=== PATIENT | female | born 1945 | race Caucasian/White ===

== ENCOUNTER 2017-06-21 16:01 | Inpatient (IN) | payer MEDICARE, OTHER ==
[2017-06-21 16:43] LABS: #Monocytes 0.5 thou/uL (0.11-0.59); #Neutrophils 2.6 thou/uL (1.40-6.50); %Basophils 0.5 % (0.0-1.0); %Eosinophils 0.2 % (0.0-10.0); %Lymphocytes 23.3 % (21.0-51.0); %Monocytes 12.9 % (0.0-10.0); %Neutrophils 63.1 % (42.0-75.0); Hemoglobin 8.6 g/dL (12.0-16.0); Mean Corpuscular HGB CONC 30.6 g/dL (32.0-36.0); Mean Corpuscular Hemoglobin 24.3 pg (27.0-31.0); Mean Corpuscular Volume 79.6 fl (81.0-99.0); Mean Platelet Volume 7.3 fL (7.4-10.4); Platelet Count 249 thou/uL (130-400); RBC Distribution Width 14.9 % (11.5-14.5); Red Blood Cell (RBC) Count 3.51 mill/uL (4.20-5.40); White Blood Cell (WBC) Count 4.1 thou/uL (4.8-10.8)
[2017-06-21 17:02] LABS: ALT (SGPT) 14 U/L (8-55); AST (SGOT) 19 U/L (5-34); Albumin 4.1 g/dL (3.4-4.8); Alkaline Phosphatase 82 U/L (40-150); Anion Gap 13 mmol/L (10-20); BUN (Urea Nitrogen) 20 mg/dL (9.8-20.1); Bilirubin, Total 0.6 mg/dL (0.2-1.2); Calc. Creatinine Clearance 0 mL/min (70-130); Calcium 8.8 mg/dL (7.8-10.44); Carbon Dioxide 23 mmol/L (23-31); Chloride 105 mmol/L (98-107); Estimated GFR-MDRD 38; Globulin 2.3 g/dL (2.4-3.5); Glucose 143 mg/dL (83-110); Potassium 5.4 mmol/L (3.5-5.1); Protein, Total 6.4 g/dL (6.0-8.3); Sodium 136 mmol/L (136-145)
[2017-06-21] MEDS ORDERED: GoLYTELY 4,000 ml Bottle PO SCH (19:30)
[2017-06-21] MEDS ORDERED: Ondansetron HCl/PF 4 MG/2 ML Vial IVP PRN (19:49)
[2017-06-21] MEDS: Sodium Chloride 0.9% 1,000 ML IV SCH (20:57)
[2017-06-21] MEDS: Pantoprazole 40 MG VIAL IVP SCH (20:57)
--- NOTE | 2017-06-21 21:56 | CON ---
DATE OF CONSULTATION: 06/21/2017 REASON FOR CONSULTATION: Iron deficiency anemia. CONSULTING PHYSICIAN: Dr. Az hall. HISTORY OF PRESENT ILLNESS: The patient is a 71-year-old female with past medical history of diabete s, hypertension, and atrial fibrillation on anticoagulation, presenting with complaints of anemia. S he states that she has been having progressively worsening fatigue over the last 3-4 months (although she cannot quantify exactly when) characterized as increased dyspnea on exertion, especially with lo nger distances with worsening of the fatigue prompted her to seek healthcare assistance with her PCP drawing routine labs earlier today, which noted a significant anemia when compared to her baseline H&H of 12 and 36. She was ultimately seen in the ER with plans to transfer to the floor. Upon question ing, she denies any overt GI bleeding, although she did state that she will have occasional episodes of bright red blood per rectum with blood present only on the toilet paper, not in the toilet. This occurs approximately once every 1-2 months with around quarter teaspoon of blood present on the toile t paper itself. Otherwise, she denies any overt GI bleeding including hematochezia or melena. She h as approximately 1-3 solid bowel movements per day with occasional straining in order to defecate. O therwise, she denies any nausea, vomiting, fevers, chills, abdominal pain, GI bleeding, odynophagia, dysphagia, or weight loss. Of note, she states that she has never had a colonoscopy. However, she underwent an EGD on 3 with the findings of a large 3 cm ulcerated polyp in the fundus of the stomach that was removed wit h snare cautery polypectomy. An additional 1 cm polyp was seen in the body of the stomach. There wa s also removed with snare cautery polypectomy. An additional 6 mm polyp was left alone in the body o f the stomach. The pathology results showed the presence of hyperplastic polyps for both of the poly ps were removed with the larger polyp showing focal adenomatoid changes involving only in the surface of the polyp with the margins negative for adenomatoid change. No Helicobacter pylori was identifie d on any of the biopsy results. REVIEW OF SYSTEMS: A 10-point category review of systems was obtained with all responses negative ex cept for the pertinent positives as listed in the HPI. PAST MEDICAL HISTORY: As per HPI. PAST SURGICAL HISTORY: Right knee surgery, left ankle surgery, CABG with 3-vessel graft, pacemaker p lacement, cardiac ablation x3, and hysterectomy. FAMILY HISTORY: CVA (mother), coronary artery disease/DC (uncle). SOCIAL HISTORY: Denies any tobacco, alcohol, or illicit drug use. OUTPATIENT MEDICATIONS: Metoprolol, Multaq, metformin, and Xarelto. ALLERGIES: No known drug allergies. PHYSICAL EXAMINATION: VITAL SIGNS: Pulse 87, blood pressure 173/85, respiratory rate 16, and satting 99% on room air. GENERAL: Patient is lying in bed in no acute distress, alert and oriented x4. NECK: Supple. No JVD noted. CARDIOVASCULAR: Regular rate and rhythm with no discernible murmurs, gallops, or rubs. RESPIRATORY: Clear to auscultation bilaterally with no discernible wheezes or rales. ABDOMEN: Normoactive bowel sounds, soft, nontender, nondistended. No hepatosplenomegaly noted. EXTREMITIES: No cyanosis, clubbing, or edema. LABORATORY DATA: CBC with a white blood cell count of 4.1, hemoglobin 8.6, hematocrit 28, platelets 249. Chemistry with a sodium of 136, potassium 5.4, chloride 105, CO2 of 23, BUN 20, creatinine 1.36 , glucose 143, AST 19, ALT 14, alkaline phosphatase 82, total bilirubin 0.6, MCV 79, RDW 14.9. IMAGING DATA: No current GI imaging is available for review. ASSESSMENT AND PLAN: The patient is a 71-year-old female with past medical history of diabetes, atri al fibrillation on anticoagulation, presenting with symptomatic anemia. Symptomatic anemia. The patient is presenting with progressive worsening of fatigue, especially with increased physical exertion over the last 3-4 months. When routine labs were obtained earlier today , her H&H was noted to be significantly decreased when compared to her baseline in February of last y ear, dropping approximately 3 or 4 units of blood during that particular time. However, upon questio bri the patient, she denies any overt GI bleeding during that time period as well with only intermit tent complaints of bright red blood per rectum of minimal amounts. At this time, it does not appear that the bright red blood per rectum would be enough to contribute to her current anemia, but rather there could be another obvious another source of occult GI bleeding. Given the EGD that was performe d in 10/2012. She may have a recurrence of the ulcerated polyps within the stomach that could contri bute to the iron deficiency anemia seen on labs today. Differential could include esophagitis (less likely) gastritis, ulcerated polyps, peptic ulcer disease, AVM/Dieulafoy lesions, and/or possible mal ignancy (much less likely). RECOMMENDATIONS: 1. We would continue to trend H&H and transfuse as necessary to maintain an H&H of 10/23. 2. Continue to monitor for signs of clinical overt gastrointestinal bleeding. 3. We would place the patient on pantoprazole 40 mg b.i.d. given possible upper gastrointestinal ble eding source with ulcerated polyps in the past. 4. We will plan for both EGD and colonoscopy tomorrow for evaluation of iron deficiency anemia. The patient is to be n.p.o. at midnight with GoLYTELY prep administered tonight in preparation for those procedures. We will continue to follow. Please call with any questions.
[2017-06-21] MEDS ORDERED: Lisinopril 20 MG TAB PO SCH (22:15)
[2017-06-21] MEDS ORDERED: Dronedarone HCl 400 MG TAB PO SCH (22:15)
[2017-06-22 06:03] LABS: #Lymphocytes 1.1 thou/uL (1.20-3.40); #Monocytes 0.6 thou/uL (0.11-0.59); #Neutrophils 2.3 thou/uL (1.40-6.50); %Basophils 0.2 % (0.0-1.0); %Eosinophils 0.1 % (0.0-10.0); %Lymphocytes 27.9 % (21.0-51.0); %Monocytes 13.9 % (0.0-10.0); %Neutrophils 57.9 % (42.0-75.0); Hemoglobin 7.7 g/dL (12.0-16.0); Mean Corpuscular HGB CONC 31.4 g/dL (32.0-36.0); Mean Corpuscular Volume 76.6 fl (81.0-99.0); Mean Platelet Volume 7.4 fL (7.4-10.4); Platelet Count 219 thou/uL (130-400); RBC Distribution Width 14.7 % (11.5-14.5); Red Blood Cell (RBC) Count 3.18 mill/uL (4.20-5.40)
[2017-06-22 06:17] LABS: Anion Gap 10 mmol/L (10-20); BUN (Urea Nitrogen) 19 mg/dL (9.8-20.1); Calc. Creatinine Clearance 53 mL/min (70-130); Calcium 8.8 mg/dL (7.8-10.44); Carbon Dioxide 29 mmol/L (23-31); Estimated GFR-MDRD 51; Glucose 106 mg/dL (83-110); Potassium 4.4 mmol/L (3.5-5.1); Sodium 138 mmol/L (136-145)
[2017-06-22 06:31] LABS: Chloride 103 mmol/L (98-107)
[2017-06-22] MEDS: Lisinopril 20 MG TAB PO SCH ×2 (08:10→19:44)
[2017-06-22] MEDS: Pantoprazole 40 MG VIAL IVP SCH ×2 (08:11→19:45)
[2017-06-22] MEDS: Dronedarone HCl 400 MG TAB PO SCH ×2 (08:12→15:36)
[2017-06-22] MEDS ORDERED: Prevnar 13-Val Conj/PF 0.5 ML SYRINGE IM ONE (09:00)
--- NOTE | 2017-06-22 11:22 | OP ---
DATE OF PROCEDURE: 06/22/2017 SURGEON: Dr. Logan Rivera PROCEDURE: Esophagogastroduodenoscopy with snare polypectomy and biopsy and colonoscopy. PREOPERATIVE DIAGNOSIS: Iron deficiency anemia on chronic anticoagulation. Her last Xarelto was the night before last. PROCEDURE IN DETAIL: Informed consent was obtained from the patient. She was sedated with total int ravenous anesthesia. The bite block was placed and the endoscope was advanced easily to the second p ortion of the duodenum and retroflexion was performed in the stomach. The esophagus had scattered wh ite plaques in the distal two-thirds of the esophagus. These were only 7 mm in size for each plaque. Biopsies were obtained to rule out fungal esophagitis. The GE junction was normal. The stomach izaguirre d a large 2 cm pedunculated polyp in the body of the stomach along the lesser curvature. This was re moved by snare cautery polypectomy. There was immediate bleeding from the polypectomy site which was controlled with a single Hemoclip. The polyp was removed with a Nugent net. There were 4 other small sessile polyps in the fundus and body that were left alone. The pylorus and first and second portio ns of the duodenum were normal. The patient was turned around. A rectal exam was performed and was normal. The colonoscope was adva nced to the terminal ileum without difficulty. The mucosa of the terminal ileum was normal. The ile ocecal valve and appendiceal orifice were clearly identified. The preparation quality was fair with some solid vegetable matter in areas, but overall the views were adequate. The colonic mucosa was no rmal throughout. Retroflexed views in the rectum were unremarkable. IMPRESSION: 1. A 2 centimeter ulcerated polyp in the body of the stomach along the lesser curvature which was re moved by snare cautery polypectomy. This was the likely source of the anemia being on chronic antico agulation. There was immediate bleeding from the post-polypectomy site which was controlled with Hem oclip placement. 2. Four other small polyps were noted in the fundus and body of the stomach, which were left alone. These measured around 5-6 mm. 3. Scattered white plaques in the esophagus, biopsied to rule out fungal esophagitis. 4. Normal ileal colonoscopy with fair prep in areas, but overall adequate views. RECOMMENDATIONS: 1. Await histopathology. 2. Repeat EGD in 1 year. 3. Transfuse 1 unit red blood cells today given the symptomatic anemia. 4. Restart anticoagulation in 3 days. 5. Follow up in GI Clinic in 2 weeks. 6. Anticipate discharge home tomorrow if she responds appropriately to the transfusion and she has n o further overt bleeding.
[2017-06-22] MEDS: Sodium Chloride 0.9% 1,000 ML IV SCH (13:38)
[2017-06-22] MEDS ORDERED: PROPOFOL 200 MG/20 ML VIAL ONE (15:03)
[2017-06-22] MEDS ORDERED: Lidocaine 1% PF 5 ML VIAL ONE (15:03)
[2017-06-22] MEDS: hydrALAZINE 20 MG/ML VIAL SLOW IVP PRN (15:49)
--- NOTE | 2017-06-22 15:54 | PDOC.PN ---
- Subjective Encounter Start Date: 06/22/17 Encounter Start Time: 15:52 Ms. Sinclair was seen today in follow-up of blood loss anemia. She does not have any complaints. - Objective Resuscitation Status: Resuscitation Status FULL:Full Resuscitation MAR Reviewed: Yes Vital Signs & Weight: Vital Signs (12 hours) Temp Pulse Pulse Resp BP BP BP 06/22/17 15:30 97.8 F 63 16 188/81 H 06/22/17 14:51 97.6 F 65 20 06/22/17 13:30 97.6 F 66 16 162/66 H 06/22/17 13:15 97.9 F 63 17 150/70 H 06/22/17 11:21 97.6 F 67 16 06/22/17 08:10 186/79 H 06/22/17 08:00 98.4 F 63 16 06/22/17 07:36 98.4 F 63 16 BP Pulse Ox 06/22/17 15:30 92 L 06/22/17 14:51 198/84 H 93 L 06/22/17 13:30 95 06/22/17 13:15 06/22/17 11:21 143/62 H 98 06/22/17 08:10 06/22/17 08:00 06/22/17 07:36 186/79 H Weight Weight 157 lb 1.6 oz I&O: 06/21/17 06/22/17 06/23/17 06:59 06:59 06:59 Intake Total 4542 470 Balance 4542 470 Result Diagrams: 06/22/17 04:15 06/22/17 04:15 Phys Exam - Physical Examination HEENT: PERRLA Respiratory: no wheezing, no rales, no rhonchi, clear to auscultation bilateral Cardiovascular: RRR, no significant murmur, no rub Gastrointestinal: soft, non-tender, positive bowel sounds Musculoskeletal: no edema Dx/Plan (1) GI bleed Code(s): K92.2 - GASTROINTESTINAL HEMORRHAGE, UNSPECIFIED Status: Acute (2) Multiple gastric polyps Code(s): K31.7 - POLYP OF STOMACH AND DUODENUM Status: Acute (3) Permanent atrial fibrillation Code(s): I48.2 - CHRONIC ATRIAL FIBRILLATION Status: Acute (4) Hypertension Code(s): I10 - ESSENTIAL (PRIMARY) HYPERTENSION Status: Acute - Plan * GI bleed due to Gastric polyps- recommendations from Dr. Rivera noted. * Blood loss anemia- she will be transfused tonight, and will check the H&H in the AM * Home if she has an appropriate response. * AFIB- heart rate is stable. * HTN- blood pressure is elevated, but the patient says she has labile blood pressure at home- will continue her current medications, and treat with PRN hydralazine
[2017-06-22] MEDS: Amlodipine 5 MG TAB PO SCH (19:44)
--- NOTE | 2017-06-23 01:31 | HP ---
DATE OF ADMISSION: 06/21/2017 PRIMARY CARE PHYSICIAN: Dr. Mena. PRIMARY SPECIAL OFFICER AUTOMAT: Dr. Green. CHIEF COMPLAINT: Anemia. HISTORY OF PRESENT ILLNESS: Ms. Sinclair is a pleasant 71-year-old white female with history of fang ry artery disease, atrial fibrillation, diabetes, hyperlipidemia, hypertension, and chronic anticoagu lation with Xarelto. The patient is in normal state of health. She had labs drawn on 06/14/2017, in anticipation of followup appointment with Cardiology and primary care physician on the day of admiss ion. When she saw Dr. Green, he commented that everything was going very well and he is to contin ue on current medications; however, when she saw Dr. Mena, he looked at her blood counts and found that her hemoglobin had dropped from 11.5 back in February down to 8.3. The patient denies any recta l bleeding, no melena, hematochezia or hematemesis. No gross hematuria. She has felt more tired lat maria teresa but denies any dyspnea on exertion. Dr. Mena did a Hemoccult that was positive for microscopic blood, but no visible blood and she was subsequently sent to the emergency department to be admitted . Workup here revealed hemoglobin on the day of admission from 8.3 to 0.6, remainder of her labs were f airly normal. Vital signs were stable with blood pressure of 115/49. We were subsequently called fo r admit. I reviewed the data and discussed the case with Dr. Servando Naylor radio station audio engineer for Gastroenterology and fel t that she was appropriate to evaluate either an inpatient or outpatient, discussed with the patient. She wished to be kept for an expedited endoscopy as she lives more than an hour away. She denies any other current complaints. No chest pain or difficulty breathing, no nausea, vomiting, diarrhea, constipation, no cough or sputum production. PAST MEDICAL HISTORY: 1. Coronary artery disease. 2. Chronic atrial fibrillation, status post ablations in the past, now is currently in sinus rhythm. 3. Diabetes mellitus type 2, noninsulin dependent. 4. Hyperlipidemia. 5. Hypertension. PAST SURGICAL HISTORY: Includes, 1. x2. 2. Permanent pacemaker placement. 3. Right knee repair. 4. Cardiac ablation x3. 5. Coronary artery bypass grafting x3 vessels. 6. Hysterectomy and bilateral salpingo-oophorectomy. 7. Left ankle repair. CURRENT MEDICATION HISTORY: Includes, 1. Lipitor 80 mg p.o. at bedtime. 2. Lisinopril 20 mg p.o. b.i.d. 3. Xarelto 20 mg daily. 4. Vitamin D3 daily. 5. Toprol-XL 25 mg daily. 6. Multaq 400 mg p.o. b.i.d. ALLERGIES: NKDA. FAMILY HISTORY: Negative for clotting or bleedings. No immune dysfunction. No premature coronary a rtery disease. SOCIAL HISTORY: Negative for habits x3. She is and monogamous. Her accompanies her . REVIEW OF SYSTEMS: Ten point review of systems was performed is negative for all systems except as s tated per HPI. PHYSICAL EXAMINATION: VITAL SIGNS: Temperature 98.6, pulse 65, blood pressure 138/49, respiratory rate 13, satting 100% o n room air. GENERAL: She is awake. She is alert. She is alert and oriented x3. She is slightly obese elderly white female, appears stated age appropriate. She appears to be in no acute distress. HEENT: Normocephalic and atraumatic. Pupils equal and reactive bilaterally, mucous membranes are mo ist. No visible lesions or thrush. NECK: Supple. There is no lymphadenopathy, JVD or thyromegaly. She has normal carotid upstrokes. I do not appreciate bruits. CHEST: Lungs are clear. She has symmetrical chest excursion. LUNGS: Good air movement. No wheezes, no rales, no rhonchi. CARDIOVASCULAR: She is regular and normal cardia. She has normal S1 and S2. I do not appreciate an y murmurs. ABDOMEN: Soft. It is nontender, nondistended. She has hyperactive bowel sounds present in all 4 qu adrants. There is no rebound, rigidity or guarding. GENITOURINARY: Rectal exam was not done. EXTREMITIES: No cyanosis, clubbing with trace pedal edema. She has 1+ dorsalis pedis and posterior tibial pulses. SKIN: Otherwise warm, moist and well perfused. She has no other rashes or lesions. Does appear sli ghtly pale. MUSCULOSKELETAL: Normal to inspection. Large joints appear uninflamed. There is no palpable effusi ons. There is no inflammation. NEUROLOGIC: Cranial nerves II through XII are grossly intact. She has normal speech pattern, she izaguirre s 5/5 strength in all 4 extremities. There are no focal deficits. LABORATORY DATA: Sodium is 136, potassium 5.4, chloride 105, bicarb 23, BUN 20, creatinine 1.36, glu cose 143, and calcium is 8.8. Liver functions are normal, but her total globulin is down to 2.3. CBC showed white count of 4.1, he moglobin 8.6, hematocrit 28.0, platelet count is 249,000, there is normal differential. RADIOGRAPHIC STUDIES: None. ASSESSMENT AND PLAN: 1. Chronic gastrointestinal blood loss and symptomatic anemia. We will place her on Protonix, she d oes not appear to be volume depleted at this point. I have spoken with Dr. Naylor, who will see her i n the morning. We will keep her n.p.o. and start her bowel prep and she will undergo upper and lower endoscopy. 2. Chronic blood loss anemia: Likely iron deficiency. Hemoglobin is 8.6. She is microcytic and hy pochromic. 3. History of coronary artery disease, without symptoms at present. We will notify Dr. Green of her admission. 4. Chronic atrial fibrillation. Currently in sinus rhythm after ablations. She is on Multaq, Topro l-XL, and on Xarelto. For this reason, we will hold her Xarelto. 5. Diabetes mellitus type 2. We will watch sugars. Check morning hemoglobin A1c and sliding scale insulin. 6. Hyperlipidemia on Lipitor. I will hold at present. 7. Hypertension takes lisinopril twice a day and Toprol-XL. Blood pressure slightly elevated now. We will hold her blood pressure medicines and use p.r.n. that she will be n.p.o. We will get bowel prep with LisetteLY, I keep her n.p.o. after midnight and follow up with GI evaluati on.
[2017-06-23] MEDS: hydrALAZINE 20 MG/ML VIAL SLOW IVP PRN (04:47)
[2017-06-23 05:01] LABS: #Lymphocytes 0.8 thou/uL (1.20-3.40); #Monocytes 0.5 thou/uL (0.11-0.59); #Neutrophils 2.9 thou/uL (1.40-6.50); %Basophils 0.1 % (0.0-1.0); %Lymphocytes 19.1 % (21.0-51.0); %Monocytes 12.7 % (0.0-10.0); %Neutrophils 68.1 % (42.0-75.0); Hemoglobin 9.4 g/dL (12.0-16.0); Mean Corpuscular HGB CONC 31.3 g/dL (32.0-36.0); Mean Corpuscular Hemoglobin 24.8 pg (27.0-31.0); Mean Corpuscular Volume 79.4 fl (81.0-99.0); Mean Platelet Volume 7.5 fL (7.4-10.4); Platelet Count 225 thou/uL (130-400); RBC Distribution Width 15.6 % (11.5-14.5); Red Blood Cell (RBC) Count 3.79 mill/uL (4.20-5.40); White Blood Cell (WBC) Count 4.3 thou/uL (4.8-10.8)
[2017-06-23] MEDS: Dronedarone HCl 400 MG TAB PO SCH ×2 (08:18→17:29)
[2017-06-23] MEDS: Lisinopril 20 MG TAB PO SCH ×2 (08:18→20:33)
[2017-06-23] MEDS: Pantoprazole 40 MG VIAL IVP SCH ×2 (08:19→20:32)
[2017-06-23] MEDS ORDERED: Metoprolol Tartrate 5 MG/5 ML VIAL IVP SCH (11:00)
--- NOTE | 2017-06-23 11:39 | PDOC.PN ---
- Subjective Encounter Start Date: 06/23/17 Encounter Start Time: 11:36 Ms. Sinclair does not have any complaints this morning, other than noting some urinary frequency, but no dysuria. This has been a problem prior to being admitted to the hospital. - Objective Resuscitation Status: Resuscitation Status FULL:Full Resuscitation MAR Reviewed: Yes Vital Signs & Weight: Vital Signs (12 hours) Temp Pulse Resp BP BP Pulse Ox 06/23/17 08:18 144/63 H 06/23/17 08:15 98.5 F 121 H 20 06/23/17 07:30 98.5 F 121 H 20 144/63 H 94 L 06/23/17 05:25 78 141/66 H 06/23/17 04:47 72 202/75 H 06/23/17 04:20 72 197/78 H Weight Weight 157 lb 1.6 oz I&O: 06/22/17 06/23/17 06/24/17 06:59 06:59 06:59 Intake Total 4542 1200 100 Output Total 600 Balance 4542 600 100 Result Diagrams: 06/23/17 04:21 06/22/17 04:15 Phys Exam - Physical Examination HEENT: PERRLA Respiratory: no wheezing, no rales, no rhonchi, clear to auscultation bilateral Cardiovascular: RRR, no significant murmur, no rub Gastrointestinal: soft, non-tender, positive bowel sounds Musculoskeletal: no edema Dx/Plan (1) GI bleed Code(s): K92.2 - GASTROINTESTINAL HEMORRHAGE, UNSPECIFIED Status: Acute (2) Multiple gastric polyps Code(s): K31.7 - POLYP OF STOMACH AND DUODENUM Status: Acute (3) Permanent atrial fibrillation Code(s): I48.2 - CHRONIC ATRIAL FIBRILLATION Status: Acute (4) Hypertension Code(s): I10 - ESSENTIAL (PRIMARY) HYPERTENSION Status: Acute - Plan * GI Bleed- thought to be due to Gastric Polyps. Her H&H had an appropriate response post transfusion * Continue Protonix * AFIB- her heart rate increased, likely as she had been off Multaq a few days- this has been re-started, and her Oil Prospecting Observer was consulted * HTN- blood pressure is better after the addition of Amlodipine * Home once cleared by Cardiology.
[2017-06-23] MEDS ORDERED: Verapamil 5 MG/2 ML VIAL IVP SCH (13:00)
--- NOTE | 2017-06-23 13:09 | CON ---
DATE OF CONSULTATION: 06/23/2017 HISTORY OF PRESENT ILLNESS: Patient is a 71-year-old woman with a history of atrial fibrillation who presents with GI hemorrhage and was noted to have a rapid irregular heart rhythm. The patient has long history of coronary artery disease. She is status post coronary artery bypass graft surgery in 2012. The patient also has a long history of atrial fibrillation. She has undergone radiofrequency ablation for atrial fibrillation. The patient most recently has been placed on Multaq and Xarelto. She noticed feeling weak and was admitted with a GI hemorrhage. During her hospitalization, she was noted to have a rapid irregular heart rate. The patient denied having any palpitations. The patient denies having any chest discomfort. She denies having any dyspnea. PAST MEDICAL HISTORY: 1. Coronary artery disease. 2. Atrial fibrillation. 3. Hypertension. 4. Diabetes mellitus. PAST SURGICAL HISTORY: Foot surgery, knee surgery, and coronary artery bypass graft surgery. SOCIAL HISTORY: Nonsmoker. FAMILY HISTORY: Positive family history of coronary artery disease. MEDICATIONS ON ADMISSION: Lipitor 80 at bedtime, Xarelto 20 daily, metoprolol 50 XL daily, lisinopril 20 b.i.d., and Multaq 400 mg p.o. b.i.d. REVIEW OF SYSTEMS: Remarkable for marked weakness. Ten-point system otherwise unremarkable. PHYSICAL EXAMINATION: GENERAL: Obese woman in no acute distress. VITAL SIGNS: Blood pressure was 144/63. NECK: No jugular venous distention. LUNGS: Clear to auscultation. HEART: Irregular rate and rhythm, normal S1, S2. ABDOMEN: Nondistended. EXTREMITIES: Showed trace edema. LABORATORY DATA AND IMAGING DATA: White blood cell count 4.3, hemoglobin 9.4, hematocrit 30.1 and her platelets 225. Sodium is 130, potassium 4.4, chloride 103, bicarbonate 29, BUN 19, creatinine is 1.0, glucose 106. classroom monitor reveal atrial fibrillation with rate of approximately 120. IMPRESSION: 1. Gastrointestinal hemorrhage. 2. Atrial fibrillation. 3. History of coronary artery bypass graft surgery. 4. Hypertension. 5. Obesity. This patient presents with atrial fibrillation after undergoing endoscopy. She needs to be off Xarelto for several days. Would recommend electrocardioversion to make sure that the patient is not in atrial fibrillation without anticoagulation. From a cardiac standpoint, we would like to treat her with IV Cardizem to see if she will convert to sinus rhythm. We will follow this patient with you through her hospitalization. DEEJAY
--- NOTE | 2017-06-23 16:07 | PRG ---
DATE OF SERVICE: 06/23/2017 SUBJECTIVE: Ms. Sinclair has no abdominal pain. No diarrhea or constipation. No overt GI bleeding. She has tolerated oral diet. OBJECTIVE: VITAL SIGNS: Temperature 98.6, pulse 107, blood pressure 143/92. GENERAL: She is in no acute distress, awake and alert. LUNGS: Clear to auscultation bilaterally. HEART: Irregular S1, S2. ABDOMEN: Soft, nontender, nondistended. Bowel sounds are present. EXTREMITIES: No lower extremity edema. IMPRESSION: 1. Iron deficiency anemia, most likely secondary to gradual blood loss from ulcerated hyperplastic p olyp removed from the stomach yesterday. She has had similar hyperplastic polyps in the past. She h ad four other small polyps in the stomach that were left alone and I would recommend repeat esophagog astroduodenoscopy in a year and this could potentially be removed at that time. Overall, remaining p olyps have no significant bleeding risk. 2. Anemia secondary to chronic blood loss and iron deficiency. She received 1 unit transfusion yest erday with appropriate improvement in her hemoglobin. 3. Atrial fibrillation with rapid ventricular rate, onset this morning. This is being managed by Ca rdiology. RECOMMENDATIONS: 1. It should be okay to restart the anticoagulation tomorrow. She did have some mild immediate blee ding from the polypectomy site and was between 36 and 48 hours from a prior dose at the time of polyp ectomy. A Hemoclip was placed over the polypectomy site and there is no overt bleeding now. 2. Follow up in GI Clinic in 2-4 weeks. PLAN: 1. Follow up EGD in a year. 2. I will sign off for now. Please call if GI can be of assistance.
[2017-06-23] MEDS ORDERED: PROPOFOL 20 ML ONE (16:51)
[2017-06-23] MEDS: Amlodipine 5 MG TAB PO SCH (20:33)
[2017-06-24 05:05] VITALS: BMI 30.6
[2017-06-24] MEDS: Lisinopril 20 MG TAB PO SCH (07:39)
[2017-06-24] MEDS ORDERED: Amlodipine 5 MG TAB PO SCH (08:14)
[2017-06-24] MEDS: Dronedarone HCl 400 MG TAB PO SCH (08:38)
[2017-06-24] MEDS: Pantoprazole 40 MG VIAL IVP SCH (08:41)
[2017-06-24] MEDS ORDERED: Sodium Chloride 0.9% 10 ML ONE (08:43)
--- NOTE | 2017-06-24 09:05 | PDOC.PN ---
- Subjective Encounter Start Date: 06/24/17 Encounter Start Time: 09:03 Subjective: Seen and examined with no new complaint - Objective Vital Signs & Weight: Vital Signs (12 hours) Temp Pulse Resp BP BP Pulse Ox 06/24/17 07:42 98.4 F 69 18 179/76 H 98 06/24/17 07:39 182/76 H 06/24/17 04:10 98.1 F 63 20 147/66 H 94 L Weight Weight 151 lb 8 oz I&O: 06/23/17 06/24/17 06/25/17 06:59 06:59 06:59 Intake Total 599.5 Output Total 1400 350 Balance -800.5 -350 Result Diagrams: 06/23/17 04:21 06/22/17 04:15 Additional Labs: Accuchecks 06/23/17 16:06 POC Glucose 96 Phys Exam - Physical Examination Constitutional: NAD HEENT: PERRLA, moist MMs, sclera anicteric, TM's clear Neck: no nodes, no JVD, supple, full ROM Respiratory: no wheezing, no rales, no rhonchi, clear to auscultation bilateral Cardiovascular: RRR, no significant murmur, no rub Gastrointestinal: soft, non-tender, no distention, positive bowel sounds Musculoskeletal: no edema, pulses present Dx/Plan (1) GI bleed Code(s): K92.2 - GASTROINTESTINAL HEMORRHAGE, UNSPECIFIED Status: Acute (2) Hypertension Code(s): I10 - ESSENTIAL (PRIMARY) HYPERTENSION Status: Acute (3) Multiple gastric polyps Code(s): K31.7 - POLYP OF STOMACH AND DUODENUM Status: Acute (4) Permanent atrial fibrillation Code(s): I48.2 - CHRONIC ATRIAL FIBRILLATION Status: Acute - Plan cont current plan of care, plan discussed w/ family, PT/OT Bp suboptimal--Norvasc increased -: Back on xarelto -: Dispo planning-coordinate with cardiology -: Restarted amiodarone * .
[2017-06-24 11:57] VITALS: BP 167/71; TEMP 97.7
[2017-06-24] MEDS ORDERED: Rivaroxaban 10 MG TAB PO SCH (18:00)
[2017-06-24] MEDS ORDERED: Amlodipine 10 MG TAB PO SCH (21:00)
--- NOTE | 2017-06-25 14:31 | DIS ---
For details of the history and physical and the consultative notes, please refer to dictations on rec ord. SUMMARY: This is a 71-year-old female patient who recently had a gastric polypectomy, who came back with anemia, likely in the context of GI blood loss. Patient was admitted and worked up by Gastroent erology and repeated esophagogastroduodenoscopy that revealed bleeding to be coming from the area of recent polypectomy. This was then Hemoclip'ed and patient returned back to the floor. The patient a lso was seen in consultation by Dr. Green, Cardiology, as the patient presented and was noted to h ave atrial fibrillation with rapid ventricular response. This was managed medically with stabilizati on of hemodynamics. CONSULTANTS DURING THIS HOSPITALIZATION: 1. Dr. Rivera with Gastroenterology. 2. Dr. Green with Cardiology. The patient having maintained sustained clinical improvement and was placed back on anticoagulant and discharged home to follow up with Cardiology and Gastroenterology. Plan is also to have a repeat ga stroduodenoscopy in a year. Total time spent including ivop-it-nukr encounter 31 minutes.
== END 2017-06-24 15:28 | disposition home or self-care (01) | DRG 379 ==
LOC: ERS 16:01 → 2SW 18:00 → OBSVTOIN 06-23 12:53 → 2NO 06-23 16:26
PROVIDERS: ADMIT Internal Medicine Infectious Disease; ATTEND Internal Medicine Infectious Disease
PROC: 0DB58ZX Excision of Esophagus, Via Natural or Artificial Opening Endoscopic, Diagnostic (ICD-10-PCS; principal; 2017-06-23)
PROC: 0DB68ZX Excision of Stomach, Via Natural or Artificial Opening Endoscopic, Diagnostic (ICD-10-PCS; 2017-06-23)
PROC: 0W3P8ZZ Control Bleeding in Gastrointestinal Tract, Via Natural or Artificial Opening Endoscopic (ICD-10-PCS; 2017-06-23)
PROC: 0DJD8ZZ Inspection of Lower Intestinal Tract, Via Natural or Artificial Opening Endoscopic (ICD-10-PCS; 2017-06-23)
PROC: 30233N1 Transfusion of Nonautologous Red Blood Cells into Peripheral Vein, Percutaneous Approach (ICD-10-PCS; 2017-06-23)
DX: K92.2 Gastrointestinal hemorrhage, unspecified (principal); I48.0 Paroxysmal atrial fibrillation; D50.0 Iron deficiency anemia secondary to blood loss (chronic); E11.9 Type 2 diabetes mellitus without complications; E66.9 Obesity, unspecified; E78.2 Mixed hyperlipidemia; I48.2 Chronic atrial fibrillation; I10 Essential (primary) hypertension; Z95.1 Presence of aortocoronary bypass graft; I25.10 Atherosclerotic heart disease of native coronary artery without angina pectoris; Z79.01 Long term (current) use of anticoagulants; Z95.0 Presence of cardiac pacemaker; K31.7 Polyp of stomach and duodenum; Z68.30 Body mass index [BMI] 30.0-30.9, adult
CPT/HCPCS: 36415; 36416; 36430; 80048; 80053; 85025; 86850; 86870; 86900; 86901; 86905; 86922; 88305; 88312; 88313; 88321; 90471; 90670; 99285; A4216; C9113; G0009; J0360; J2001; J2704; J7050; P9016

== ENCOUNTER 2018-07-12 13:54 | Outpatient (CLI) | payer MEDICARE, OTHER ==
--- NOTE | 2018-07-15 09:14 | MMO ---
Bilateral MAMMO Bilat Screen [facility]. CLINICAL HISTORY: Patient is 72 years old and is seen for screening. The patient has no family history of breast cancer. The patient has no personal history of cancer. VIEWS: The views performed were: bilateral craniocaudal with tomosynthesis; bilateral mediolateral oblique with tomosynthesis; and left mediolateral oblique. FILMS COMPARED: The present examination has been compared to a prior imaging study performed at [facility] on 10/11/2013. MAMMOGRAM FINDINGS: There are scattered fibroglandular densities. There are stable benign appearing calcifications seen in both breasts. There are no suspicious masses, suspicious calcifications, or new areas of architectural distortion. IMPRESSION: THERE IS NO MAMMOGRAPHIC EVIDENCE OF MALIGNANCY. A ROUTINE FOLLOW-UP MAMMOGRAM IN 1 YEAR IS RECOMMENDED. THE RESULTS OF THIS EXAM WERE SENT TO THE PATIENT. ACR BI-RADS Category 2 - Benign finding MAMMOGRAPHY NOTE: 1. A negative mammogram report should not delay a biopsy if a dominant of clinically suspicious mass is present. 2. Approximately 10% to 15% of breast cancers are not detected by mammography. 3. Adenosis and dense breasts may obscure an underlying neoplasm.
== END 2018-07-12 13:55 | disposition home or self-care (01) ==
LOC: BICMAMMO 13:54
PROVIDERS: ATTEND Family Medicine
DX: Z12.31 Encounter for screening mammogram for malignant neoplasm of breast (principal)
CPT/HCPCS: 77063; 77067

== ENCOUNTER 2019-12-21 08:57 | Outpatient (CLI) | payer MEDICARE, OTHER ==
--- NOTE | 2019-12-21 09:26 | MMO ---
Bilateral MAMMO Bilat Screen [facility]. CLINICAL HISTORY: Patient is 74 years old and is seen for screening. The patient has no family history of breast cancer. The patient has no personal history of cancer. VIEWS: The views performed were: bilateral craniocaudal with tomosynthesis and bilateral mediolateral oblique with tomosynthesis. FILMS COMPARED: The present examination has been compared to prior imaging studies performed at [facility] on 10/11/2013, and at [facility] on 07/12/2018. This study has been interpreted with the assistance of computer-aided detection. MAMMOGRAM FINDINGS: There are scattered fibroglandular densities. There are stable benign appearing calcifications seen in both breasts. There are no suspicious masses, suspicious calcifications, or new areas of architectural distortion. IMPRESSION: THERE IS NO MAMMOGRAPHIC EVIDENCE OF MALIGNANCY. A ROUTINE FOLLOW-UP MAMMOGRAM IN 1 YEAR IS RECOMMENDED. THE RESULTS OF THIS EXAM WERE SENT TO THE PATIENT. ACR BI-RADS Category 2 - Benign finding MAMMOGRAPHY NOTE: 1. A negative mammogram report should not delay a biopsy if a dominant of clinically suspicious mass is present. 2. Approximately 10% to 15% of breast cancers are not detected by mammography. 3. Adenosis and dense breasts may obscure an underlying neoplasm. Reported by: MENDOZA WAY MD Electonically Signed: [id number]
== END 2019-12-21 08:58 | disposition home or self-care (01) ==
LOC: BICMAMMO 08:57
PROVIDERS: ATTEND Family Medicine
DX: Z12.31 Encounter for screening mammogram for malignant neoplasm of breast (principal)
CPT/HCPCS: 77063; 77067

== ENCOUNTER 2021-02-14 11:55 | Outpatient (CLI) | payer MEDICARE, OTHER | END 2021-02-14 11:56 | disposition home or self-care (01) | LOC: BICULT 11:55 | PROVIDERS: ATTEND Internal Medicine Nephrology | DX: I12.9 Hypertensive chronic kidney disease with stage 1 through stage 4 chronic kidney disease, or unspecified chronic kidney disease (principal); E11.22 Type 2 diabetes mellitus with diabetic chronic kidney disease; N18.30 Chronic kidney disease, stage 3 unspecified; D63.1 Anemia in chronic kidney disease; K27.9 Peptic ulcer, site unspecified, unspecified as acute or chronic, without hemorrhage or perforation; I25.10 Atherosclerotic heart disease of native coronary artery without angina pectoris; I47.1 Supraventricular tachycardia; J44.9 Chronic obstructive pulmonary disease, unspecified; I36.8 Other nonrheumatic tricuspid valve disorders; K21.9 Gastro-esophageal reflux disease without esophagitis; R10.9 Unspecified abdominal pain; R05.9 Cough, unspecified; E78.5 Hyperlipidemia, unspecified; M19.90 Unspecified osteoarthritis, unspecified site; E66.9 Obesity, unspecified; Z95.1 Presence of aortocoronary bypass graft | CPT/HCPCS: 76770; 93975 ==

== ENCOUNTER 2022-02-12 12:12 | Outpatient (CLI) | payer MEDICARE, OTHER | END 2022-02-12 12:13 | disposition home or self-care (01) | LOC: BICMAMMO 12:12 | PROVIDERS: ATTEND Family Medicine | DX: Z12.31 Encounter for screening mammogram for malignant neoplasm of breast (principal) | CPT/HCPCS: 77063; 77067 ==

== ENCOUNTER 2022-03-30 10:27 | Emergency (ER) | payer MEDICARE, OTHER ==
[2022-03-30] MEDS ORDERED: Magnesium 2 GM/50 ML BAG (IN WATER) ONE (11:17)
[2022-03-30] MEDS ORDERED: Metoprolol Tartrate 5 MG/5 ML VIAL ONE (11:17)
[2022-03-30 11:34] LABS: ALT (SGPT) 22 U/L (8-55); AST (SGOT) 26 U/L (5-34); Alkaline Phosphatase 65 U/L (40-110); Anion Gap 22 mmol/L (10-20); BUN (Urea Nitrogen) 34 mg/dL (9.8-20.1); Bilirubin, Total 0.9 mg/dL (0.2-1.2); Calc. Creatinine Clearance 0 mL/min (70-130); Calcium 9.1 mg/dL (7.8-10.44); Carbon Dioxide 18 mmol/L (23-31); Chloride 102 mmol/L (98-107); Estimated GFR 35; Globulin 2.8 g/dL (2.4-3.5); Glucose 156 mg/dL (83-110); Potassium 5.4 mmol/L (3.5-5.1); Protein, Total 6.8 g/dL (5.8-8.1); Sodium 137 mmol/L (136-145)
[2022-03-30 11:38] LABS: #Eosinphils 0.1 thou/uL (0.0-0.7); #Lymphocytes 1.2 thou/uL (1.20-3.40); #Monocytes 0.8 thou/uL (0.11-0.59); #Neutrophils 6.3 thou/uL (1.40-6.50); %Basophils 0.2 % (0.0-1.0); %Eosinophils 0.8 % (0.0-10.0); %Lymphocytes 14.6 % (21.0-51.0); %Monocytes 9.3 % (0.0-10.0); %Neutrophils 75.2 % (42.0-75.0); Hemoglobin 13.5 g/dL (12.0-16.0); Mean Corpuscular HGB CONC 33.5 g/dL (32.0-36.0); Mean Corpuscular Hemoglobin 27.4 pg (27.0-31.0); Mean Corpuscular Volume 81.8 fl (78.0-98.0); Mean Platelet Volume 9.1 fL (7.4-10.4); Platelet Count 170 10x3/uL (130-400); RBC Distribution Width 14.2 % (11.5-14.5); Red Blood Cell (RBC) Count 4.93 mill/uL (4.20-5.40); White Blood Cell (WBC) Count 8.4 10x3/uL (4.8-10.8)
[2022-03-30] MEDS ORDERED: Fentanyl 100 MCG/2 ML VIAL ONE (11:57)
[2022-03-30] MEDS ORDERED: Propofol 500 MG/50 ML VIAL ONE (11:57)
[2022-03-30 13:07] LABS: SARS-CoV-2 NAA Rapid Test Not Detected (NotDetected)
== END 2022-03-30 13:30 | disposition home or self-care (01) ==
LOC: ERS 10:27
DX: I48.91 Unspecified atrial fibrillation (principal); E11.9 Type 2 diabetes mellitus without complications; I10 Essential (primary) hypertension; E78.00 Pure hypercholesterolemia, unspecified; Z79.899 Other long term (current) drug therapy; Z20.822 Contact with and (suspected) exposure to COVID-19
CPT/HCPCS: 0240U; 71045; 80053; 84484; 85025; 93005; 94760; 36415; 92960; 96374; 96375; 99152; J2704; J3010; J3475

== ENCOUNTER 2022-03-31 06:01 | Observation (INO) | payer MEDICARE, OTHER ==
[2022-03-31] MEDS ORDERED: Benzonatate 100 MG CAP ONE (06:47)
[2022-03-31] MEDS ORDERED: Diltiazem 125 MG/25 ML ONE (06:47)
[2022-03-31 07:21] LABS: Hemoglobin 12.6 g/dL (12.0-16.0); Mean Corpuscular HGB CONC 33.1 g/dL (32.0-36.0); Mean Corpuscular Hemoglobin 25.2 pg (27.0-31.0); Mean Corpuscular Volume 76.1 fl (78.0-98.0); Mean Platelet Volume 10.6 fL (7.4-10.4); Platelet Count 169 10x3/uL (130-400); RBC Distribution Width 16.2 % (11.5-14.5); Red Blood Cell (RBC) Count 4.99 mill/uL (4.20-5.40); White Blood Cell (WBC) Count 4.8 10x3/uL (4.8-10.8)
[2022-03-31 07:33] LABS: ALT (SGPT) 20 U/L (8-55); AST (SGOT) 24 U/L (5-34); Albumin 3.6 g/dL (3.4-4.8); Alkaline Phosphatase 94 U/L (40-110); Anion Gap 14 mmol/L (10-20); BUN (Urea Nitrogen) 8 mg/dL (9.8-20.1); Bilirubin, Total 0.5 mg/dL (0.2-1.2); Calc. Creatinine Clearance 0 mL/min (70-130); Calcium 9.3 mg/dL (7.8-10.44); Carbon Dioxide 27 mmol/L (23-31); Chloride 102 mmol/L (98-107); Estimated GFR 86; Glucose 110 mg/dL (83-110); Potassium 4.3 mmol/L (3.5-5.1); Protein, Total 7.6 g/dL (5.8-8.1); Sodium 139 mmol/L (136-145)
[2022-03-31 07:37] LABS: PTT 35.1 sec (22.9-36.1); Prothrombin Time 13.2 sec (12.0-14.7)
[2022-03-31 07:55] LABS: Band 6 % (5-11); Eosinophils 1 % (0-10); Lymphocytes 32 % (21-51); MDiff Complete? YES; Monocytes 7 % (0-10); Neutrophil 44 % (42-75); Platelet Morphology Comment Appears Adequate; Polychromasia SLIGHT = 2-3 cells (100X) (0-2/hpf); Reactive Lymphocytes 10 % (0-10)
[2022-03-31 08:56] LABS: Troponin I Less than 0.010 ng/mL (< 0.028)
[2022-03-31] MEDS ORDERED: Dextrose 5% in Water 1,000 ML IV PRN (09:08)
[2022-03-31] MEDS ORDERED: Dextrose 50% Abboject 50 ML SYRINGE SLOW IVP PRN (09:08)
[2022-03-31] MEDS ORDERED: HumaLOG 300 UNITS/3 ML VIAL SC PRN ×2 (09:10)
[2022-03-31] MEDS ORDERED: Sodium Chloride 0.9% 1,000 ML IV SCH (09:15)
[2022-03-31] MEDS ORDERED: guaiFENesin 200 MG TAB PO PRN (09:23)
[2022-03-31] MEDS ORDERED: Loratadine 10 MG TAB PO SCH (09:45)
[2022-03-31] MEDS ORDERED: Dronedarone HCl 400 MG TAB PO SCH ×2 (09:45→17:00)
[2022-03-31 12:04] VITALS: BMI 29.6
[2022-03-31] MEDS ORDERED: Ondansetron PF 4 MG/2 ML Vial IVP PRN (12:06)
[2022-03-31] MEDS ORDERED: Ondansetron ODT 4 MG TAB PO PRN (12:06)
[2022-03-31] MEDS ORDERED: Diltiazem 125 MG in Sodium Chloride 0.9% 100 ML IVPB SCH (12:30)
[2022-03-31 12:49] LABS: Troponin I Less than 0.010 ng/mL (< 0.028)
[2022-03-31] MEDS: Benzonatate 100 MG CAP PO SCH ×2 (15:18→20:48)
[2022-03-31] MEDS: Dronedarone HCl 400 MG TAB PO SCH (16:50)
[2022-03-31] MEDS ORDERED: Rivaroxaban 15 MG TAB PO SCH (18:00)
[2022-03-31] MEDS ORDERED: guaiFENesin/Codeine 200 mg/20 mg 10 ml Cup PO PRN (18:35)
[2022-03-31] MEDS ORDERED: Rivaroxaban 2.5 MG TAB PO SCH (18:45)
[2022-03-31] MEDS ORDERED: Atorvastatin Calcium 40 MG TAB PO SCH (21:00)
[2022-04-01 05:24] LABS: #Lymphocytes 1.1 thou/uL (1.20-3.40); #Monocytes 0.7 thou/uL (0.11-0.59); %Basophils 0.1 % (0.0-1.0); %Eosinophils 0.2 % (0.0-10.0); %Lymphocytes 14.3 % (21.0-51.0); %Monocytes 8.7 % (0.0-10.0); %Neutrophils 76.7 % (42.0-75.0); Hemoglobin 11.1 g/dL (12.0-16.0); Mean Corpuscular HGB CONC 30.9 g/dL (32.0-36.0); Mean Corpuscular Hemoglobin 25.5 pg (27.0-31.0); Mean Corpuscular Volume 82.4 fl (78.0-98.0); Mean Platelet Volume 7.1 fL (7.4-10.4); Platelet Count 283 10x3/uL (130-400); Red Blood Cell (RBC) Count 4.37 mill/uL (4.20-5.40); White Blood Cell (WBC) Count 7.9 10x3/uL (4.8-10.8)
[2022-04-01 05:34] LABS: Anion Gap 13 mmol/L (10-20); BUN (Urea Nitrogen) 18 mg/dL (9.8-20.1); Calc. Creatinine Clearance 45 mL/min (70-130); Calcium 8.6 mg/dL (7.8-10.44); Carbon Dioxide 25 mmol/L (23-31); Chloride 104 mmol/L (98-107); Estimated GFR 52; Glucose 133 mg/dL (83-110); Potassium 4.1 mmol/L (3.5-5.1); Sodium 138 mmol/L (136-145)
[2022-04-01] MEDS: Dronedarone HCl 400 MG TAB PO SCH (07:53)
[2022-04-01] MEDS: Benzonatate 100 MG CAP PO SCH (07:53)
[2022-04-01] MEDS ORDERED: Amlodipine 10 MG TAB PO SCH (09:00)
[2022-04-01] MEDS ORDERED: Loratadine 10 MG TAB PO SCH (09:00)
[2022-04-01] MEDS ORDERED: Ezetimibe 10 MG TAB PO SCH (09:00)
[2022-04-01 12:11] VITALS: BP 126/60; TEMP 97.5
[2022-04-01] MEDS ORDERED: Rivaroxaban 10 MG TAB PO SCH (17:00)
== END 2022-04-01 12:55 | disposition home or self-care (01) ==
LOC: ERS 06:01 → ERHOLD 06:38 → 2SW 12:00
PROVIDERS: ADMIT Family Medicine; ATTEND Family Medicine
DX: I48.19 Other persistent atrial fibrillation (principal); I49.5 Sick sinus syndrome; J20.9 Acute bronchitis, unspecified; I25.10 Atherosclerotic heart disease of native coronary artery without angina pectoris; E78.00 Pure hypercholesterolemia, unspecified; I12.9 Hypertensive chronic kidney disease with stage 1 through stage 4 chronic kidney disease, or unspecified chronic kidney disease; E11.22 Type 2 diabetes mellitus with diabetic chronic kidney disease; N18.9 Chronic kidney disease, unspecified; E66.9 Obesity, unspecified; Z68.29 Body mass index [BMI] 29.0-29.9, adult; Z79.01 Long term (current) use of anticoagulants; Z79.84 Long term (current) use of oral hypoglycemic drugs; Z79.899 Other long term (current) drug therapy; Z95.0 Presence of cardiac pacemaker; Z95.1 Presence of aortocoronary bypass graft; Z20.822 Contact with and (suspected) exposure to COVID-19
CPT/HCPCS: 71045; 71046; 80048; 80053; 82962 ×2; 84484 ×2; 85025 ×2; 85610; 85730; 93005; 96365; 96366; 96375; 96376; 99285; G0378 ×3; U0003; U0005; 36415; 36416; 96374; J3490

== ENCOUNTER 2022-04-14 12:52 | Outpatient (CLI) | payer MEDICARE, OTHER ==
[2022-04-14 13:47] LABS: Mean Corpuscular HGB CONC 32.3 g/dL (32.0-36.0); Mean Corpuscular Hemoglobin 25.3 pg (27.0-33.0); Mean Corpuscular Volume 78.3 fl (81.6-98.3); Mean Platelet Volume 10.3 fl (7.4-10.4); Platelet Count 251 10x3/uL (150-450); RBC Distribution Width 15.5 % (11.5-14.5); Red Blood Cell (RBC) Count 4.74 10x6/uL (3.90-5.03); White Blood Cell (WBC) Count 6.4 10x3/uL (3.5-10.5)
[2022-04-14 14:14] LABS: Anion Gap 17 mmol/L (10-20); BUN (Urea Nitrogen) 19 mg/dL (9.8-20.1); Calc. Creatinine Clearance 0 mL/min (70-130); Calcium 9.1 mg/dL (7.8-10.44); Carbon Dioxide 24 mmol/L (23-31); Chloride 93 mmol/L (98-107); Estimated GFR 34; Glucose 110 mg/dL (83-110); Potassium 4.6 mmol/L (3.5-5.1); Sodium 129 mmol/L (136-145)
== END 2022-04-14 12:53 | disposition home or self-care (01) ==
LOC: LABBT 12:52
PROVIDERS: ATTEND Internal Medicine Cardiovascular Disease
DX: Z01.812 Encounter for preprocedural laboratory examination (principal); I48.0 Paroxysmal atrial fibrillation
CPT/HCPCS: 80048; 85027

== ENCOUNTER 2022-04-15 06:19 | Day surgery (SDC) | payer MEDICARE, OTHER ==
[2022-04-13 12:50] VITALS: BMI 29.2
[2022-04-15] MEDS ORDERED: PROPOFOL 200 MG/20 ML VIAL ONE (08:32)
== END 2022-04-15 09:56 | disposition home or self-care (01) ==
LOC: SDC 06:19
PROVIDERS: ATTEND Internal Medicine Cardiovascular Disease
PROC: 5A2204Z Restoration of Cardiac Rhythm, Single (ICD-10-PCS; principal; 2022-04-15)
DX: I48.19 Other persistent atrial fibrillation (principal); I48.92 Unspecified atrial flutter; I25.10 Atherosclerotic heart disease of native coronary artery without angina pectoris; I25.2 Old myocardial infarction; E78.5 Hyperlipidemia, unspecified; I10 Essential (primary) hypertension; I49.5 Sick sinus syndrome; E11.9 Type 2 diabetes mellitus without complications; Z79.01 Long term (current) use of anticoagulants; Z79.84 Long term (current) use of oral hypoglycemic drugs; Z79.899 Other long term (current) drug therapy; Z95.0 Presence of cardiac pacemaker; Z95.1 Presence of aortocoronary bypass graft
CPT/HCPCS: 92960; J2704

== ENCOUNTER 2022-06-24 10:48 | Emergency (ER) | payer MEDICARE, OTHER ==
[2022-06-24 12:03] LABS: #Lymphocytes 1.1 thou/uL (1.20-3.40); #Monocytes 0.6 thou/uL (0.11-0.59); #Neutrophils 2.9 thou/uL (1.40-6.50); %Basophils 0.4 % (0.0-1.0); %Eosinophils 0.1 % (0.0-10.0); %Lymphocytes 24.2 % (21.0-51.0); %Neutrophils 63.3 % (42.0-75.0); Hemoglobin 11.9 g/dL (12.0-16.0); Mean Corpuscular HGB CONC 31.4 g/dL (32.0-36.0); Mean Corpuscular Hemoglobin 25.1 pg (27.0-31.0); Mean Corpuscular Volume 79.8 fl (78.0-98.0); Mean Platelet Volume 8.6 fL (7.4-10.4); Platelet Count 209 10x3/uL (130-400); Red Blood Cell (RBC) Count 4.76 mill/uL (4.20-5.40); White Blood Cell (WBC) Count 4.6 10x3/uL (4.8-10.8)
[2022-06-24 12:16] LABS: Bacteria/HPF None Seen HPF (None Seen); Bilirubin Negative (Negative); Blood, Urine Negative (Negative); Clarity Clear (Clear); Glucose, Urine (Dipstick) Normal (Negative); Ketone, Urine Negative (Negative); Leukocyte 75 Leu/uL (Negative); Nitrite Negative (Negative); Protein, Urine (Dipstick) 10 mg/dL (Neg-Trace); RBC/HPF 0-3 HPF (0-3); Specific Gravity, Urine 1.012 (1.002-1.036); Squamous Epithelial 0-3 HPF (0-3); Urobilinogen Normal mg/dL (Less than 2); pH, Urine 5.5 (5.0-9.0)
[2022-06-24 12:23] LABS: ALT (SGPT) 17 U/L (8-55); AST (SGOT) 27 U/L (5-34); Albumin 4.5 g/dL (3.4-4.8); Alkaline Phosphatase 89 U/L (40-110); Anion Gap 14 mmol/L (10-20); BUN (Urea Nitrogen) 25 mg/dL (9.8-20.1); Bilirubin, Total 0.8 mg/dL (0.2-1.2); Calc. Creatinine Clearance 0 mL/min (70-130); Calcium 9.3 mg/dL (7.8-10.44); Carbon Dioxide 26 mmol/L (23-31); Chloride 101 mmol/L (98-107); Estimated GFR 56; Globulin 2.8 g/dL (2.4-3.5); Glucose 107 mg/dL (83-110); Potassium 4.5 mmol/L (3.5-5.1); Protein, Total 7.3 g/dL (5.8-8.1); Sodium 136 mmol/L (136-145)
== END 2022-06-24 13:48 | disposition home or self-care (01) ==
LOC: ERS 10:48
DX: J18.9 Pneumonia, unspecified organism (principal); K21.9 Gastro-esophageal reflux disease without esophagitis; E11.9 Type 2 diabetes mellitus without complications; E78.00 Pure hypercholesterolemia, unspecified; I10 Essential (primary) hypertension; Z79.01 Long term (current) use of anticoagulants; Z79.84 Long term (current) use of oral hypoglycemic drugs
CPT/HCPCS: 71045; 80053; 81003; 81015; 83880; 84484; 85025; 93005

== ENCOUNTER 2023-03-18 13:48 | Inpatient (IN) | payer MEDICARE, OTHER ==
[2023-03-18 14:24] LABS: #Monocytes 0.3 thou/uL (0.11-0.59); #Neutrophils 3.7 thou/uL (1.40-6.50); %Lymphocytes 10.6 % (21.0-51.0); %Neutrophils 82.2 % (42.0-75.0); Hematocrit 32.9 % (36.0-47.0); Hemoglobin 9.9 g/dL (12.0-16.0); Mean Corpuscular HGB CONC 30.1 g/dL (32.0-36.0); Mean Corpuscular Hemoglobin 25.1 pg (27.0-31.0); Mean Corpuscular Volume 83.3 fl (78.0-98.0); Mean Platelet Volume 9.6 fL (7.4-10.4); Platelet Count 192 10x3/uL (130-400); RBC Distribution Width 16.1 % (11.5-14.5); Red Blood Cell (RBC) Count 3.95 mill/uL (4.20-5.40); White Blood Cell (WBC) Count 4.5 10x3/uL (4.8-10.8)
[2023-03-18 14:46] LABS: ALT (SGPT) 18 U/L (8-55); AST (SGOT) 25 U/L (5-34); Albumin 3.9 g/dL (3.4-4.8); Alkaline Phosphatase 76 U/L (40-110); Anion Gap 15 mmol/L (10-20); BUN (Urea Nitrogen) 29 mg/dL (9.8-20.1); Bilirubin, Total 1.8 mg/dL (0.2-1.2); Calc. Creatinine Clearance 0 mL/min (70-130); Calcium 8.8 mg/dL (7.8-10.44); Carbon Dioxide 20 mmol/L (23-31); Chloride 104 mmol/L (98-107); Estimated GFR 45; Globulin 2.5 g/dL (2.4-3.5); Glucose 143 mg/dL (83-110); Potassium 4.6 mmol/L (3.5-5.1); Protein, Total 6.4 g/dL (5.8-8.1); Sodium 134 mmol/L (136-145)
[2023-03-18 14:50] LABS: Troponin I Less than 0.010 ng/mL (< 0.028)
[2023-03-18] MEDS ORDERED: Furosemide 40 MG/4 ML VIAL ONE (16:02)
[2023-03-18] MEDS ORDERED: HYDROcodone/Acetaminophen 5/325 mg Tablet PO PRN (16:09)
[2023-03-18] MEDS ORDERED: Acetaminophen 325 MG TAB PO PRN (16:09)
[2023-03-18] MEDS ORDERED: Ondansetron PF 4 MG/2 ML Vial IVP PRN (16:09)
[2023-03-18] MEDS ORDERED: Ondansetron ODT 4 MG TAB PO PRN (16:09)
[2023-03-18] MEDS ORDERED: HumaLOG 300 UNITS/3 ML VIAL SC PRN ×2 (17:43)
[2023-03-18] MEDS ORDERED: Dextrose 50% Abboject 50 ML SYRINGE SLOW IVP PRN (17:43)
[2023-03-18] MEDS ORDERED: Dextrose 5% in Water 1,000 ML IV PRN (17:43)
[2023-03-18] MEDS ORDERED: Glucagon 1 MG/ML KIT IM PRN (17:43)
[2023-03-18] MEDS ORDERED: hydrALAZINE 20 MG/ML VIAL SLOW IVP PRN (17:44)
[2023-03-18] MEDS ORDERED: Ipratropium/Albuterol 3 ML NEB NEB PRN (18:26)
[2023-03-18] MEDS ORDERED: Piperacillin/Tazobactam 3.375 GM in Sodium Chloride 0.9% 100 ML IVPB SCH (20:00)
[2023-03-18 20:06] VITALS: BMI 28.6
[2023-03-18] MEDS ORDERED: Heparin 5,000 UNITS/ML VIAL SC SCH (21:00)
[2023-03-18] MEDS: Atorvastatin Calcium 40 MG TAB PO SCH (21:12)
[2023-03-18] MEDS: Amlodipine 5 MG TAB PO SCH (21:12)
[2023-03-18 21:20] LABS: SARS-CoV-2 NAA Rapid Test Not Detected (NotDetected)
[2023-03-18] MEDS ORDERED: Apixaban 5 MG TAB PO SCH (23:00)
[2023-03-18] MEDS: Piperacillin/Tazobactam 3.375 GM in Sodium Chloride 0.9% 100 ML IVPB SCH (23:19)
[2023-03-19 04:23] LABS: #Monocytes 0.4 thou/uL (0.11-0.59); #Neutrophils 2.1 thou/uL (1.40-6.50); %Lymphocytes 22.5 % (21.0-51.0); %Monocytes 13.6 % (0.0-10.0); %Neutrophils 63.6 % (42.0-75.0); Hematocrit 28.9 % (36.0-47.0); Mean Corpuscular HGB CONC 31.1 g/dL (32.0-36.0); Mean Corpuscular Hemoglobin 24.7 pg (27.0-31.0); Mean Platelet Volume 9.4 fL (7.4-10.4); Platelet Count 181 10x3/uL (130-400); Red Blood Cell (RBC) Count 3.64 mill/uL (4.20-5.40); White Blood Cell (WBC) Count 3.2 10x3/uL (4.8-10.8)
[2023-03-19 04:57] LABS: Anion Gap 13 mmol/L (10-20); BUN (Urea Nitrogen) 26 mg/dL (9.8-20.1); Calc. Creatinine Clearance 42 mL/min (70-130); Calcium 8.6 mg/dL (7.8-10.44); Carbon Dioxide 26 mmol/L (23-31); Chloride 102 mmol/L (98-107); Estimated GFR 51; Glucose 94 mg/dL (83-110); Potassium 3.5 mmol/L (3.5-5.1); Sodium 137 mmol/L (136-145)
[2023-03-19 05:44] LABS: Mean Corpuscular Volume 79.4 fl (78.0-98.0)
[2023-03-19] MEDS: Furosemide 20 MG/2 ML VIAL SLOW IVP SCH ×2 (06:25→14:46)
[2023-03-19] MEDS ORDERED: Dronedarone HCl 400 MG TAB PO SCH (08:00)
[2023-03-19] MEDS: Piperacillin/Tazobactam 3.375 GM in Sodium Chloride 0.9% 100 ML IVPB SCH ×2 (08:57→16:42)
[2023-03-19] MEDS: Ezetimibe 10 MG TAB PO SCH (08:59)
[2023-03-19] MEDS: Cholecalciferol 1,000 UNITS (25 MCG) TAB PO SCH (08:59)
[2023-03-19] MEDS ORDERED: Apixaban 5 MG TAB PO SCH (09:00)
[2023-03-19] MEDS: metFORMIN 500 MG TAB PO SCH (16:42)
[2023-03-19] MEDS ORDERED: Rivaroxaban 15 MG TAB PO SCH (17:00)
[2023-03-19] MEDS: Atorvastatin Calcium 40 MG TAB PO SCH (20:50)
[2023-03-19] MEDS: Amlodipine 5 MG TAB PO SCH (20:51)
[2023-03-20] MEDS: Piperacillin/Tazobactam 3.375 GM in Sodium Chloride 0.9% 100 ML IVPB SCH ×2 (00:28→15:39)
[2023-03-20 04:03] LABS: #Monocytes 0.7 thou/uL (0.11-0.59); #Neutrophils 2.2 thou/uL (1.40-6.50); %Lymphocytes 24.3 % (21.0-51.0); %Monocytes 17.5 % (0.0-10.0); %Neutrophils 57.9 % (42.0-75.0); Hematocrit 31.3 % (36.0-47.0); Hemoglobin 9.7 g/dL (12.0-16.0); Mean Corpuscular Hemoglobin 24.9 pg (27.0-31.0); Mean Corpuscular Volume 80.5 fl (78.0-98.0); Mean Platelet Volume 9.6 fL (7.4-10.4); Platelet Count 216 10x3/uL (130-400); RBC Distribution Width 16.4 % (11.5-14.5); Red Blood Cell (RBC) Count 3.89 mill/uL (4.20-5.40); White Blood Cell (WBC) Count 3.8 10x3/uL (4.8-10.8)
[2023-03-20 04:41] LABS: Anion Gap 14 mmol/L (10-20); BUN (Urea Nitrogen) 20 mg/dL (9.8-20.1); Calc. Creatinine Clearance 36 mL/min (70-130); Calcium 8.4 mg/dL (7.8-10.44); Carbon Dioxide 34 mmol/L (23-31); Chloride 95 mmol/L (98-107); Estimated GFR 43; Glucose 113 mg/dL (83-110); Iron Binding Capacity, Total 293 mcg/dL (265-497); Potassium 3.3 mmol/L (3.5-5.1); Sodium 140 mmol/L (136-145)
[2023-03-20 05:03] LABS: Iron 17 ug/dL (50-170)
[2023-03-20] MEDS: Furosemide 20 MG/2 ML VIAL SLOW IVP SCH ×2 (05:42→13:27)
[2023-03-20] MEDS ORDERED: FLU VACC QS2023(65UP)/MF59C/PF 60 MCG/0.5 ML SYRINGE IM ONE (09:00)
[2023-03-20] MEDS ORDERED: Lidocaine 1% PF 5 ML VIAL ONE (09:50)
[2023-03-20] MEDS ORDERED: PROPOFOL 20 ML ONE (09:50)
[2023-03-20] MEDS ORDERED: Piperacillin/Tazobactam 3.375 GM VIAL ONE (09:53)
[2023-03-20] MEDS ORDERED: Sodium Chloride 0.9% 100 ML ONE (09:53)
[2023-03-20] MEDS ORDERED: Potassium Chloride 20 MEQ TAB PO SCH (10:00)
[2023-03-20] MEDS ORDERED: Promethazine HCl 25 MG/ML VIAL IM PRN (10:26)
[2023-03-20] MEDS ORDERED: Ondansetron HCl/PF 4 MG/2 ML Vial IVP PRN (10:26)
[2023-03-20] MEDS ORDERED: Iron, Sodium Ferric Gluconate 250 MG in Sodium Chloride 0.9% 250 ML 250 ML IVPB SCH ×2 (11:27→18:00)
[2023-03-20] MEDS ORDERED: Piperacillin/Tazobactam 3.375 GM in Sodium Chloride 0.9% 100 ML IVPB SCH (13:00)
[2023-03-20] MEDS: Ezetimibe 10 MG TAB PO SCH (13:24)
[2023-03-20] MEDS: Cholecalciferol 1,000 UNITS (25 MCG) TAB PO SCH (13:24)
[2023-03-20 16:31] VITALS: BP 131/87; TEMP 97.5
[2023-03-20] MEDS: metFORMIN 500 MG TAB PO SCH (17:28)
[2023-03-21] MEDS ORDERED: Furosemide 20 MG TAB PO SCH (09:00)
== END 2023-03-20 18:08 | disposition home or self-care (01) | DRG 291 ==
LOC: ERS 13:48 → 2SW 16:09 → OBSVTOIN 03-19 15:07
PROVIDERS: ADMIT Hospitalist; ATTEND Hospitalist
PROC: 0DB68ZZ Excision of Stomach, Via Natural or Artificial Opening Endoscopic (ICD-10-PCS; principal; 2023-03-20)
PROC: 0DB58ZX Excision of Esophagus, Via Natural or Artificial Opening Endoscopic, Diagnostic (ICD-10-PCS; 2023-03-20)
DX: I11.0 Hypertensive heart disease with heart failure (principal); I50.33 Acute on chronic diastolic (congestive) heart failure; J96.01 Acute respiratory failure with hypoxia; E87.20 Acidosis, unspecified; I48.21 Permanent atrial fibrillation; N17.9 Acute kidney failure, unspecified; E11.9 Type 2 diabetes mellitus without complications; I25.10 Atherosclerotic heart disease of native coronary artery without angina pectoris; E66.9 Obesity, unspecified; I07.1 Rheumatic tricuspid insufficiency; D50.9 Iron deficiency anemia, unspecified; K31.7 Polyp of stomach and duodenum; K44.9 Diaphragmatic hernia without obstruction or gangrene; G47.33 Obstructive sleep apnea (adult) (pediatric); Z95.1 Presence of aortocoronary bypass graft; Z79.899 Other long term (current) drug therapy; Z98.891 History of uterine scar from previous surgery; Z90.710 Acquired absence of both cervix and uterus; Z90.722 Acquired absence of ovaries, bilateral; Z98.890 Other specified postprocedural states; Z91.119 Patient's noncompliance with dietary regimen due to unspecified reason; Z79.01 Long term (current) use of anticoagulants; Z11.52 Encounter for screening for COVID-19; E78.00 Pure hypercholesterolemia, unspecified; Z68.26 Body mass index [BMI] 26.0-26.9, adult
CPT/HCPCS: 36415; 36416; 71045; 71250; 80048; 80053; 82607; 83540; 83550; 83880; 84443; 84484; 85025; 88305; 88313; 88342; 93005; 93306; 93798; 96365; 96366; 96374; 96376; G0378; J1940; J2543; J2704; J2916; J3490; J7050; U0002

== ENCOUNTER 2023-03-23 13:00 | Inpatient (IN) | payer MEDICARE, OTHER ==
[2023-03-23] MEDS ORDERED: Ondansetron PF 4 MG/2 ML Vial ONE (13:26)
[2023-03-23 13:57] LABS: #Monocytes 0.5 thou/uL (0.11-0.59); #Neutrophils 4.2 thou/uL (1.40-6.50); %Eosinophils 0.2 % (0.0-10.0); %Lymphocytes 9.5 % (21.0-51.0); %Monocytes 9.9 % (0.0-10.0); %Neutrophils 80.2 % (42.0-75.0); Hematocrit 34.3 % (36.0-47.0); Hemoglobin 10.7 g/dL (12.0-16.0); Mean Corpuscular HGB CONC 31.2 g/dL (32.0-36.0); Mean Corpuscular Hemoglobin 24.8 pg (27.0-31.0); Mean Corpuscular Volume 79.6 fl (78.0-98.0); Platelet Count 301 10x3/uL (130-400); RBC Distribution Width 15.9 % (11.5-14.5); Red Blood Cell (RBC) Count 4.31 mill/uL (4.20-5.40); White Blood Cell (WBC) Count 5.3 10x3/uL (4.8-10.8)
[2023-03-23 14:25] LABS: ALT (SGPT) 18 U/L (8-55); AST (SGOT) 30 U/L (5-34); Albumin 4.1 g/dL (3.4-4.8); Alkaline Phosphatase 70 U/L (40-110); Anion Gap 27 mmol/L (10-20); BUN (Urea Nitrogen) 37 mg/dL (9.8-20.1); Bilirubin, Total 1.2 mg/dL (0.2-1.2); Calc. Creatinine Clearance 0 mL/min (70-130); Calcium 7.3 mg/dL (7.8-10.44); Carbon Dioxide 17 mmol/L (23-31); Chloride 86 mmol/L (98-107); Estimated GFR 6; Globulin 2.4 g/dL (2.4-3.5); Glucose 60 mg/dL (83-110); Lipase 38 U/L (8-78); Potassium 4.2 mmol/L (3.5-5.1); Protein, Total 6.5 g/dL (5.8-8.1); Sodium 126 mmol/L (136-145)
[2023-03-23 14:30] LABS: Troponin I 0.029 ng/mL (< 0.028)
[2023-03-23] MEDS ORDERED: Dextrose 50% Abboject 50 ML SYRINGE ONE (14:50)
[2023-03-23] MEDS ORDERED: Acetaminophen 325 MG TAB PO PRN (15:31)
[2023-03-23] MEDS ORDERED: Ondansetron ODT 4 MG TAB PO PRN (15:31)
[2023-03-23] MEDS ORDERED: HumaLOG 300 UNITS/3 ML VIAL SC PRN (15:47)
[2023-03-23] MEDS ORDERED: Glucagon 1 MG/ML KIT IM PRN (15:47)
[2023-03-23] MEDS ORDERED: Dextrose 5% in Water 1,000 ML IV PRN (15:47)
[2023-03-23] MEDS ORDERED: Dextrose 50% Abboject 50 ML SYRINGE SLOW IVP PRN (15:47)
[2023-03-23 16:56] VITALS: BMI 27.5
[2023-03-23] MEDS ORDERED: Albuterol 200 PUFF (6.7GM INHALER) INH PRN (18:15)
[2023-03-23] MEDS: Amlodipine 10 MG TAB PO SCH (19:53)
[2023-03-23] MEDS: Ondansetron PF 4 MG/2 ML Vial IVP PRN (20:00)
[2023-03-23] MEDS: Atorvastatin Calcium 40 MG TAB PO SCH (20:21)
[2023-03-23] MEDS: Apixaban 5 MG TAB PO SCH (20:21)
[2023-03-24 04:53] LABS: #Monocytes 0.6 thou/uL (0.11-0.59); #Neutrophils 2.9 thou/uL (1.40-6.50); %Lymphocytes 13.8 % (21.0-51.0); Hematocrit 28.3 % (36.0-47.0); Mean Corpuscular HGB CONC 31.8 g/dL (32.0-36.0); Mean Corpuscular Hemoglobin 25.4 pg (27.0-31.0); Mean Corpuscular Volume 79.9 fl (78.0-98.0); Mean Platelet Volume 9.7 fL (7.4-10.4); Platelet Count 240 10x3/uL (130-400); Red Blood Cell (RBC) Count 3.54 mill/uL (4.20-5.40); White Blood Cell (WBC) Count 4.1 10x3/uL (4.8-10.8)
[2023-03-24 06:52] LABS: Calcium 6.5 mg/dL (7.8-10.44)
[2023-03-24 06:55] LABS: Anion Gap 20 mmol/L (10-20); BUN (Urea Nitrogen) 40 mg/dL (9.8-20.1); Calc. Creatinine Clearance 7 mL/min (70-130); Carbon Dioxide 22 mmol/L (23-31); Chloride 89 mmol/L (98-107); Estimated GFR 6; Glucose 70 mg/dL (83-110); Sodium 127 mmol/L (136-145)
[2023-03-24] MEDS: Ondansetron PF 4 MG/2 ML Vial IVP PRN (09:40)
[2023-03-24 10:11] LABS: HBSAg Index 0.23 S/CO (0-0.99); Hep B Surf Ag Non-Reactive S/CO (NonReactive)
[2023-03-24 10:20] LABS: HBSAB Concentration Less than 8.00 mIU/mL; Hep B Surf AB Non-Reactive (NonReactive)
[2023-03-24] MEDS ORDERED: Heparin 10,000 UNITS/ 10 ML VIAL ONE (10:27)
[2023-03-24] MEDS ORDERED: Sodium Chloride 0.9% 1,000 ML IV SCH (10:45)
[2023-03-24] MEDS: Ferrous Sulfate 325 MG TAB PO SCH (11:14)
[2023-03-24] MEDS: Ezetimibe 10 MG TAB PO SCH (11:14)
[2023-03-24] MEDS: Cholecalciferol 1,000 UNITS (25 MCG) TAB PO SCH (11:15)
[2023-03-24] MEDS: Apixaban 5 MG TAB PO SCH (11:18)
[2023-03-24 18:08] LABS: Anion Gap 15 mmol/L (10-20); BUN (Urea Nitrogen) 22 mg/dL (9.8-20.1); Calc. Creatinine Clearance 13 mL/min (70-130); Carbon Dioxide 23 mmol/L (23-31); Chloride 98 mmol/L (98-107); Estimated GFR 13; Glucose 79 mg/dL (83-110); Magnesium 1.5 mg/dL (1.6-2.6); Phosphorus 3.2 mg/dL (2.3-4.7); Potassium 3.1 mmol/L (3.5-5.1); Sodium 133 mmol/L (136-145)
[2023-03-24] MEDS: Atorvastatin Calcium 40 MG TAB PO SCH (20:51)
[2023-03-24] MEDS: Amlodipine 10 MG TAB PO SCH (20:54)
[2023-03-25 05:49] LABS: #Monocytes 0.5 thou/uL (0.11-0.59); #Neutrophils 2.7 thou/uL (1.40-6.50); %Lymphocytes 13.2 % (21.0-51.0); %Monocytes 13.4 % (0.0-10.0); %Neutrophils 72.9 % (42.0-75.0); Mean Corpuscular Hemoglobin 25.1 pg (27.0-31.0); Mean Corpuscular Volume 80.8 fl (78.0-98.0); Mean Platelet Volume 9.4 fL (7.4-10.4); Platelet Count 246 10x3/uL (130-400); RBC Distribution Width 16.6 % (11.5-14.5); Red Blood Cell (RBC) Count 3.59 mill/uL (4.20-5.40); White Blood Cell (WBC) Count 3.7 10x3/uL (4.8-10.8)
[2023-03-25 06:15] LABS: Anion Gap 14 mmol/L (10-20); BUN (Urea Nitrogen) 22 mg/dL (9.8-20.1); Calc. Creatinine Clearance 11 mL/min (70-130); Calcium 7.1 mg/dL (7.8-10.44); Carbon Dioxide 24 mmol/L (23-31); Chloride 99 mmol/L (98-107); Estimated GFR 13; Glucose 74 mg/dL (83-110); Potassium 3.3 mmol/L (3.5-5.1); Sodium 134 mmol/L (136-145)
[2023-03-25] MEDS ORDERED: Heparin 10,000 UNITS/ 10 ML VIAL ONE (09:37)
[2023-03-25] MEDS: Ezetimibe 10 MG TAB PO SCH (11:16)
[2023-03-25] MEDS: Ferrous Sulfate 325 MG TAB PO SCH (11:16)
[2023-03-25] MEDS: Cholecalciferol 1,000 UNITS (25 MCG) TAB PO SCH (11:17)
[2023-03-25] MEDS: Amlodipine 10 MG TAB PO SCH (20:57)
[2023-03-25] MEDS: Atorvastatin Calcium 40 MG TAB PO SCH (20:57)
[2023-03-25] MEDS: Apixaban 2.5 MG TAB PO SCH (20:57)
[2023-03-26 04:48] LABS: #Monocytes 0.8 thou/uL (0.11-0.59); #Neutrophils 2.9 thou/uL (1.40-6.50); %Lymphocytes 14.8 % (21.0-51.0); %Monocytes 18.3 % (0.0-10.0); %Neutrophils 66.7 % (42.0-75.0); Hematocrit 30.8 % (36.0-47.0); Hemoglobin 9.3 g/dL (12.0-16.0); Mean Corpuscular HGB CONC 30.2 g/dL (32.0-36.0); Mean Corpuscular Hemoglobin 24.7 pg (27.0-31.0); Mean Corpuscular Volume 81.9 fl (78.0-98.0); Mean Platelet Volume 9.5 fL (7.4-10.4); Platelet Count 230 10x3/uL (130-400); RBC Distribution Width 16.8 % (11.5-14.5); Red Blood Cell (RBC) Count 3.76 mill/uL (4.20-5.40); White Blood Cell (WBC) Count 4.3 10x3/uL (4.8-10.8)
[2023-03-26 05:26] LABS: Anion Gap 12 mmol/L (10-20); BUN (Urea Nitrogen) 8 mg/dL (9.8-20.1); Calc. Creatinine Clearance 25 mL/min (70-130); Calcium 7.5 mg/dL (7.8-10.44); Carbon Dioxide 27 mmol/L (23-31); Chloride 100 mmol/L (98-107); Estimated GFR 34; Glucose 100 mg/dL (83-110); Potassium 3.2 mmol/L (3.5-5.1); Sodium 136 mmol/L (136-145)
[2023-03-26 05:28] LABS: Creatinine, Urine 65.72 mg/dL (47-110)
[2023-03-26] MEDS: Ezetimibe 10 MG TAB PO SCH (08:53)
[2023-03-26] MEDS: Ferrous Sulfate 325 MG TAB PO SCH (08:53)
[2023-03-26] MEDS: Apixaban 2.5 MG TAB PO SCH ×2 (08:53→20:33)
[2023-03-26] MEDS: Cholecalciferol 1,000 UNITS (25 MCG) TAB PO SCH (08:53)
[2023-03-26] MEDS ORDERED: Potassium Chloride 20 MEQ TAB PO SCH (11:30)
[2023-03-26] MEDS: Amlodipine 10 MG TAB PO SCH (20:33)
[2023-03-26] MEDS: Atorvastatin Calcium 40 MG TAB PO SCH (20:33)
[2023-03-27 07:06] LABS: Anion Gap 12 mmol/L (10-20); BUN (Urea Nitrogen) 10 mg/dL (9.8-20.1); Calc. Creatinine Clearance 21 mL/min (70-130); Calcium 7.7 mg/dL (7.8-10.44); Carbon Dioxide 26 mmol/L (23-31); Chloride 98 mmol/L (98-107); Estimated GFR 26; Glucose 117 mg/dL (83-110); Potassium 3.9 mmol/L (3.5-5.1); Sodium 132 mmol/L (136-145)
[2023-03-27] MEDS: Ferrous Sulfate 325 MG TAB PO SCH (08:25)
[2023-03-27] MEDS: Apixaban 2.5 MG TAB PO SCH ×2 (08:26→21:48)
[2023-03-27] MEDS: Cholecalciferol 1,000 UNITS (25 MCG) TAB PO SCH (08:26)
[2023-03-27] MEDS: Ezetimibe 10 MG TAB PO SCH (08:26)
[2023-03-27] MEDS: Loratadine 10 MG TAB PO PRN (11:58)
[2023-03-27] MEDS: Guaifenesin DM 100-10/5 ML UDCUP PO PRN ×2 (11:58→16:56)
[2023-03-27 20:48] LABS: SARS-CoV-2 NAA Rapid Test Not Detected (NotDetected)
[2023-03-27] MEDS: Atorvastatin Calcium 40 MG TAB PO SCH (21:48)
[2023-03-27] MEDS: Amlodipine 10 MG TAB PO SCH (21:49)
[2023-03-28 07:06] LABS: Anion Gap 12 mmol/L (10-20); BUN (Urea Nitrogen) 10 mg/dL (9.8-20.1); Calc. Creatinine Clearance 30 mL/min (70-130); Calcium 8.1 mg/dL (7.8-10.44); Carbon Dioxide 26 mmol/L (23-31); Chloride 101 mmol/L (98-107); Estimated GFR 39; Glucose 104 mg/dL (83-110); Potassium 3.9 mmol/L (3.5-5.1); Sodium 135 mmol/L (136-145)
[2023-03-28] MEDS: Loratadine 10 MG TAB PO PRN (08:03)
[2023-03-28] MEDS: Guaifenesin DM 100-10/5 ML UDCUP PO PRN ×2 (08:03→13:41)
[2023-03-28] MEDS: Apixaban 2.5 MG TAB PO SCH ×2 (09:10→20:06)
[2023-03-28] MEDS: Ferrous Sulfate 325 MG TAB PO SCH (09:10)
[2023-03-28] MEDS: Cholecalciferol 1,000 UNITS (25 MCG) TAB PO SCH (09:10)
[2023-03-28] MEDS: Benzonatate 100 MG CAP PO SCH ×3 (09:10→20:06)
[2023-03-28] MEDS: Ezetimibe 10 MG TAB PO SCH (09:10)
[2023-03-28 11:53] LABS: Troponin I Less than 0.010 ng/mL (< 0.028)
[2023-03-28] MEDS ORDERED: Guaifenesin DM 100-10/5 ML UDCUP PO PRN (15:11)
[2023-03-28] MEDS: Atorvastatin Calcium 40 MG TAB PO SCH (20:05)
[2023-03-28] MEDS: Amlodipine 10 MG TAB PO SCH (20:06)
[2023-03-28] MEDS: guaiFENesin/Codeine 200 mg/20 mg 10 ml Cup PO PRN (20:47)
[2023-03-29] MEDS: guaiFENesin/Codeine 200 mg/20 mg 10 ml Cup PO PRN ×3 (04:21→21:16)
[2023-03-29 07:23] LABS: #Monocytes 0.6 thou/uL (0.11-0.59); #Neutrophils 3.6 thou/uL (1.40-6.50); %Basophils 0.2 % (0.0-1.0); %Lymphocytes 8.1 % (21.0-51.0); %Monocytes 12.9 % (0.0-10.0); %Neutrophils 77.9 % (42.0-75.0); Hematocrit 28.7 % (36.0-47.0); Hemoglobin 8.8 g/dL (12.0-16.0); Mean Corpuscular HGB CONC 30.7 g/dL (32.0-36.0); Mean Corpuscular Hemoglobin 25.4 pg (27.0-31.0); Mean Corpuscular Volume 82.9 fl (78.0-98.0); Mean Platelet Volume 10.1 fL (7.4-10.4); Platelet Count 187 10x3/uL (130-400); RBC Distribution Width 17.3 % (11.5-14.5); Red Blood Cell (RBC) Count 3.46 mill/uL (4.20-5.40); White Blood Cell (WBC) Count 4.6 10x3/uL (4.8-10.8)
[2023-03-29 07:50] LABS: ALT (SGPT) 14 U/L (8-55); AST (SGOT) 25 U/L (5-34); Albumin 3.1 g/dL (3.4-4.8); Alkaline Phosphatase 65 U/L (40-110); Anion Gap 11 mmol/L (10-20); BUN (Urea Nitrogen) 11 mg/dL (9.8-20.1); Bilirubin, Total 1.1 mg/dL (0.2-1.2); Calc. Creatinine Clearance 38 mL/min (70-130); Calcium 7.9 mg/dL (7.8-10.44); Carbon Dioxide 26 mmol/L (23-31); Chloride 96 mmol/L (98-107); Estimated GFR 48; Globulin 1.9 g/dL (2.4-3.5); Glucose 115 mg/dL (83-110); Magnesium 1.2 mg/dL (1.6-2.6); Sodium 129 mmol/L (136-145)
[2023-03-29] MEDS: Benzonatate 100 MG CAP PO SCH ×3 (08:23→21:18)
[2023-03-29] MEDS: Ezetimibe 10 MG TAB PO SCH (08:23)
[2023-03-29] MEDS: Apixaban 2.5 MG TAB PO SCH ×2 (08:24→21:18)
[2023-03-29] MEDS: Ferrous Sulfate 325 MG TAB PO SCH (08:24)
[2023-03-29] MEDS: Cholecalciferol 1,000 UNITS (25 MCG) TAB PO SCH (08:24)
[2023-03-29] MEDS: Loratadine 10 MG TAB PO PRN (08:24)
[2023-03-29] MEDS ORDERED: Ipratropium/Albuterol 3 ML NEB NEB PRN (09:58)
[2023-03-29] MEDS ORDERED: Magnesium 2 GM/50 ML(in water) 2 GM in Premix 1 BAG IVPB SCH ×2 (10:00→10:15)
[2023-03-29] MEDS ORDERED: predniSONE 20 MG TAB PO SCH (10:15)
[2023-03-29] MEDS: HumaLOG 300 UNITS/3 ML VIAL SC PRN (18:50)
[2023-03-29] MEDS: Atorvastatin Calcium 40 MG TAB PO SCH (21:18)
[2023-03-29] MEDS: Amlodipine 10 MG TAB PO SCH (21:18)
[2023-03-30 06:52] LABS: #Monocytes 0.3 thou/uL (0.11-0.59); #Neutrophils 2.7 thou/uL (1.40-6.50); %Monocytes 9.6 % (0.0-10.0); %Neutrophils 78.8 % (42.0-75.0); Hemoglobin 9.2 g/dL (12.0-16.0); Mean Corpuscular HGB CONC 30.7 g/dL (32.0-36.0); Mean Corpuscular Hemoglobin 25.4 pg (27.0-31.0); Mean Corpuscular Volume 82.9 fl (78.0-98.0); Mean Platelet Volume 9.9 fL (7.4-10.4); Platelet Count 178 10x3/uL (130-400); RBC Distribution Width 16.9 % (11.5-14.5); Red Blood Cell (RBC) Count 3.62 mill/uL (4.20-5.40); White Blood Cell (WBC) Count 3.4 10x3/uL (4.8-10.8)
[2023-03-30 07:17] LABS: Anion Gap 12 mmol/L (10-20); BUN (Urea Nitrogen) 18 mg/dL (9.8-20.1); Calc. Creatinine Clearance 33 mL/min (70-130); Calcium 8.2 mg/dL (7.8-10.44); Carbon Dioxide 25 mmol/L (23-31); Chloride 96 mmol/L (98-107); Estimated GFR 42; Glucose 170 mg/dL (83-110); Potassium 4.3 mmol/L (3.5-5.1); Sodium 129 mmol/L (136-145)
[2023-03-30] MEDS: Ezetimibe 10 MG TAB PO SCH (09:16)
[2023-03-30] MEDS: predniSONE 20 MG TAB PO SCH (09:16)
[2023-03-30] MEDS: Benzonatate 100 MG CAP PO SCH (09:16)
[2023-03-30] MEDS: Cholecalciferol 1,000 UNITS (25 MCG) TAB PO SCH (09:16)
[2023-03-30] MEDS: Loratadine 10 MG TAB PO PRN (09:16)
[2023-03-30] MEDS: Ferrous Sulfate 325 MG TAB PO SCH (09:17)
[2023-03-30] MEDS: Apixaban 2.5 MG TAB PO SCH ×3 (09:17→21:22)
[2023-03-30] MEDS: Lidocaine 1% w/Epinephrine 1:100K 20 ML VIAL ONE (09:21)
[2023-03-30] MEDS ORDERED: Lidocaine 1% w/Epinephrine 1:100K 30 ML VIAL FS SCH (09:45)
[2023-03-30] MEDS: guaiFENesin/Codeine 200 mg/20 mg 10 ml Cup PO PRN (11:10)
[2023-03-30] MEDS: HumaLOG 300 UNITS/3 ML VIAL SC PRN ×2 (13:22→18:06)
[2023-03-30] MEDS ORDERED: Benzonatate 100 MG CAP PO PRN (13:34)
[2023-03-30] MEDS ORDERED: Iron, Sodium Ferric Gluconate 250 MG in Sodium Chloride 0.9% 250 ML 250 ML IVPB SCH (13:45)
[2023-03-30] MEDS: Amlodipine 10 MG TAB PO SCH (21:21)
[2023-03-30] MEDS: Atorvastatin Calcium 40 MG TAB PO SCH (21:22)
[2023-03-31] MEDS: guaiFENesin/Codeine 200 mg/20 mg 10 ml Cup PO PRN ×2 (00:06→20:50)
[2023-03-31 01:06] LABS: #Monocytes 0.7 thou/uL (0.11-0.59); #Neutrophils 5.3 thou/uL (1.40-6.50); %Eosinophils 0.2 % (0.0-10.0); %Lymphocytes 6.9 % (21.0-51.0); %Monocytes 10.2 % (0.0-10.0); %Neutrophils 82.1 % (42.0-75.0); Hematocrit 36.8 % (36.0-47.0); Hemoglobin 11.6 g/dL (12.0-16.0); Mean Corpuscular HGB CONC 31.5 g/dL (32.0-36.0); Mean Corpuscular Hemoglobin 25.2 pg (27.0-31.0); Mean Platelet Volume 10.1 fL (7.4-10.4); Platelet Count 242 10x3/uL (130-400); RBC Distribution Width 17.1 % (11.5-14.5); White Blood Cell (WBC) Count 6.5 10x3/uL (4.8-10.8)
[2023-03-31 01:36] LABS: ALT (SGPT) 14 U/L (8-55); AST (SGOT) 19 U/L (5-34); Alkaline Phosphatase 59 U/L (40-110); Anion Gap 14 mmol/L (10-20); BUN (Urea Nitrogen) 21 mg/dL (9.8-20.1); Bilirubin, Total 0.8 mg/dL (0.2-1.2); Calc. Creatinine Clearance 36 mL/min (70-130); Calcium 7.7 mg/dL (7.8-10.44); Carbon Dioxide 21 mmol/L (23-31); Chloride 92 mmol/L (98-107); Estimated GFR 46; Glucose 208 mg/dL (83-110); Magnesium 1.6 mg/dL (1.6-2.6); Phosphorus 2.9 mg/dL (2.3-4.7); Potassium 4.2 mmol/L (3.5-5.1); Sodium 123 mmol/L (136-145)
[2023-03-31] MEDS: predniSONE 20 MG TAB PO SCH (08:11)
[2023-03-31] MEDS: Cholecalciferol 1,000 UNITS (25 MCG) TAB PO SCH (08:11)
[2023-03-31] MEDS: Ferrous Sulfate 325 MG TAB PO SCH (08:11)
[2023-03-31] MEDS: Ezetimibe 10 MG TAB PO SCH (08:12)
[2023-03-31] MEDS: Apixaban 2.5 MG TAB PO SCH ×2 (14:51→20:47)
[2023-03-31] MEDS: HumaLOG 300 UNITS/3 ML VIAL SC PRN (17:20)
[2023-03-31] MEDS: Amlodipine 10 MG TAB PO SCH (20:46)
[2023-03-31] MEDS: Atorvastatin Calcium 40 MG TAB PO SCH (20:47)
[2023-04-01 05:11] LABS: #Monocytes 0.5 thou/uL (0.11-0.59); #Neutrophils 4.1 thou/uL (1.40-6.50); %Lymphocytes 10.7 % (21.0-51.0); %Monocytes 10.3 % (0.0-10.0); %Neutrophils 78.8 % (42.0-75.0); Hematocrit 31.7 % (36.0-47.0); Hemoglobin 9.8 g/dL (12.0-16.0); Mean Corpuscular HGB CONC 30.9 g/dL (32.0-36.0); Mean Corpuscular Hemoglobin 24.7 pg (27.0-31.0); Mean Corpuscular Volume 79.8 fl (78.0-98.0); Platelet Count 253 10x3/uL (130-400); RBC Distribution Width 17.2 % (11.5-14.5); Red Blood Cell (RBC) Count 3.97 mill/uL (4.20-5.40); White Blood Cell (WBC) Count 5.3 10x3/uL (4.8-10.8)
[2023-04-01 05:34] LABS: ALT (SGPT) 12 U/L (8-55); AST (SGOT) 17 U/L (5-34); Albumin 3.2 g/dL (3.4-4.8); Alkaline Phosphatase 57 U/L (40-110); Anion Gap 13 mmol/L (10-20); BUN (Urea Nitrogen) 24 mg/dL (9.8-20.1); Bilirubin, Total 0.8 mg/dL (0.2-1.2); Calc. Creatinine Clearance 37 mL/min (70-130); Calcium 8.2 mg/dL (7.8-10.44); Carbon Dioxide 27 mmol/L (23-31); Chloride 96 mmol/L (98-107); Estimated GFR 47; Glucose 160 mg/dL (83-110); Magnesium 1.6 mg/dL (1.6-2.6); Phosphorus 2.8 mg/dL (2.3-4.7); Potassium 4.1 mmol/L (3.5-5.1); Protein, Total 5.2 g/dL (5.8-8.1); Sodium 132 mmol/L (136-145)
[2023-04-01 08:36] VITALS: TEMP 97.5
[2023-04-01] MEDS: Ferrous Sulfate 325 MG TAB PO SCH (09:17)
[2023-04-01] MEDS: Loratadine 10 MG TAB PO PRN (09:17)
[2023-04-01] MEDS: Ezetimibe 10 MG TAB PO SCH (09:17)
[2023-04-01] MEDS: predniSONE 20 MG TAB PO SCH (09:17)
[2023-04-01] MEDS: Cholecalciferol 1,000 UNITS (25 MCG) TAB PO SCH (09:17)
[2023-04-01] MEDS: Apixaban 2.5 MG TAB PO SCH (09:19)
[2023-04-01 11:55] VITALS: BP 121/61
== END 2023-04-01 12:29 | disposition home or self-care (01) | DRG 682 ==
LOC: ERS 13:00 → 2SW 16:11
PROVIDERS: ADMIT Hospitalist; ATTEND Internal Medicine
PROC: 06HY33Z Insertion of Infusion Device into Lower Vein, Percutaneous Approach (ICD-10-PCS; principal; 2023-03-24)
DX: N17.9 Acute kidney failure, unspecified (principal); J96.01 Acute respiratory failure with hypoxia; I13.2 Hypertensive heart and chronic kidney disease with heart failure and with stage 5 chronic kidney disease, or end stage renal disease; I48.21 Permanent atrial fibrillation; I50.32 Chronic diastolic (congestive) heart failure; E86.0 Dehydration; I25.10 Atherosclerotic heart disease of native coronary artery without angina pectoris; E78.5 Hyperlipidemia, unspecified; Z95.1 Presence of aortocoronary bypass graft; Z79.84 Long term (current) use of oral hypoglycemic drugs; Z79.899 Other long term (current) drug therapy; Z79.01 Long term (current) use of anticoagulants; Z95.0 Presence of cardiac pacemaker; Z90.710 Acquired absence of both cervix and uterus; N18.9 Chronic kidney disease, unspecified; E11.649 Type 2 diabetes mellitus with hypoglycemia without coma; N18.5 Chronic kidney disease, stage 5; D63.1 Anemia in chronic kidney disease; E87.6 Hypokalemia; Z11.52 Encounter for screening for COVID-19
CPT/HCPCS: 36415; 36416; 71045; 80048; 80053; 82306; 82570; 83540; 83690; 83735; 83880; 84100; 84145; 84156; 84484; 85025; 86706; 87340; 90935; 93005; 93010; 96374; 96375; G0257; J1642; J1644; J1815; J2405; J2916; J3475; J7050; J7512; J7999

== ENCOUNTER 2023-04-08 14:10 | Outpatient (CLI) | payer MEDICARE, OTHER | END 2023-04-08 14:11 | disposition home or self-care (01) | LOC: BICRAD 14:10 | PROVIDERS: ATTEND Family Medicine | DX: J18.9 Pneumonia, unspecified organism (principal) | CPT/HCPCS: 71046 ==